=== PATIENT | male | born 1995 | race Caucasian/White ===

== ENCOUNTER 2017-01-22 16:26 | Observation (INO) | payer BC ==
[~2017-01-22] VITALS: Ht 180.3 cm; Wt 90.7 kg
[2017-01-22 17:23] LABS: BASOPHILS % (AUTO) 0 % (0-10); EOSINOPHILS # (AUTO) 0.5 10^3/uL (0.0-0.3); EOSINOPHILS % (AUTO) 6 % (0-10); LYMPHOCYTES # (AUTO) 2.6 X 10^3 (1.0-4.0); LYMPHOCYTES % (AUTO) 34 % (12-44); MEAN CORPUSCULAR HEMOGLOBIN 31 PG (25-34); MEAN CORPUSCULAR HGB CONC 36 G/DL (32-36); MEAN CORPUSCULAR VOLUME 87 FL (80-99); MEAN PLATELET VOLUME 10.8 FL (7.4-10.4); MONOCYTES # (AUTO) 0.7 X 10^3 (0.0-1.0); MONOCYTES % (AUTO) 9 % (0-12); NEUTROPHILS % (AUTO) 51 % (42-75); PLATELET COUNT 199 10^3/uL (130-400); RED BLOOD COUNT 4.95 10^6/uL (4.35-5.85); RED CELL DISTRIBUTION WIDTH 12.2 % (10.0-14.5); WHITE BLOOD COUNT 7.8 10^3/uL (4.3-11.0)
[2017-01-22 17:34] LABS: ALANINE AMINOTRANSFERASE 15 U/L (0-55); ALBUMIN 4.5 G/DL (3.2-4.5); ANION GAP 12 MMOL/L (5-14); ASPARTATE AMINO TRANSFERASE 16 U/L (5-34); BILIRUBIN,TOTAL 0.7 MG/DL (0.1-1.0); BLOOD UREA NITROGEN 13 MG/DL (7-18); BUN/CREATININE RATIO 14; CARBON DIOXIDE 22 MMOL/L (21-32); CHLORIDE 107 MMOL/L (98-107); CREATINE KINASE 117 U/L (30-200); CREATININE SERUM 0.93 MG/DL (0.60-1.30); GFR ESTIMATED > 60; GLUCOSE 109 MG/DL (70-105); POTASSIUM 3.7 MMOL/L (3.6-5.0); SODIUM 141 MMOL/L (135-145); TOTAL PROTEIN 7.1 G/DL (6.4-8.2)
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
[2017-01-22 17:45] LABS: TROPONIN I < 0.30 NG/ML (<0.30)
[2017-01-22] MEDS ORDERED: NS IV 1000 ML 1,000 ML IV ONE (17:45)
[2017-01-22 18:49] LABS: BILIRUBIN,URINE NEGATIVE (NEGATIVE); KETONES,URINE NEGATIVE (NEGATIVE); LEUKOCYTE ESTERASE ,URINE NEGATIVE (NEGATIVE); NITRITE,URINE NEGATIVE (NEGATIVE); PH,URINE 6 (5-9); PROTEIN,URINE NEGATIVE (NEGATIVE); UROBILINOGEN,URINE NORMAL (NORMAL)
[2017-01-22 18:59] LABS: SQUAMOUS EPITHELIAL CELL,UR RARE /HPF
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
[2017-01-22 20:01] VITALS: BP 131/72
[2017-01-22] MEDS ORDERED: HYDROcodone/APAP 5 MG/325 MG (LORTAB) TAB PO PRN (20:30)
[2017-01-22] MEDS ORDERED: ACETAMINOPHEN 325 MG TABLET/CAPLET (TYLENOL) PO PRN (20:30)
[2017-01-22] MEDS ORDERED: KETOROLAC 30 MG/ML VIAL IV PRN (20:30)
[2017-01-22] MEDS ORDERED: ONDANSETRON 4 MG/2 ML (SDV) Z0FRAN IV PRN (20:30)
[2017-01-22] MEDS ORDERED: NS IV 1000 ML 1,000 ML IV SCH (20:30)
[2017-01-22] MEDS ORDERED: CATHETER FLUSH 10 ML SYR IV PRN (20:30)
[2017-01-22] MEDS: CATHETER FLUSH 10 ML SYR IV SCH (22:21)
[2017-01-23] VITALS: BP 133/60
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
[2017-01-23 04:00] VITALS: BP 112/67
[2017-01-23 05:14] LABS: BASOPHILS % (AUTO) 0 % (0-10); EOSINOPHILS # (AUTO) 0.4 10^3/uL (0.0-0.3); EOSINOPHILS % (AUTO) 6 % (0-10); LYMPHOCYTES # (AUTO) 2.9 X 10^3 (1.0-4.0); LYMPHOCYTES % (AUTO) 43 % (12-44); MEAN CORPUSCULAR HEMOGLOBIN 31 PG (25-34); MEAN CORPUSCULAR HGB CONC 35 G/DL (32-36); MEAN CORPUSCULAR VOLUME 88 FL (80-99); MEAN PLATELET VOLUME 10.3 FL (7.4-10.4); MONOCYTES # (AUTO) 0.5 X 10^3 (0.0-1.0); MONOCYTES % (AUTO) 8 % (0-12); NEUTROPHILS # (AUTO) 2.8 X 10^3 (1.8-7.8); NEUTROPHILS % (AUTO) 43 % (42-75); PLATELET COUNT 163 10^3/uL (130-400); RED CELL DISTRIBUTION WIDTH 12.4 % (10.0-14.5); WHITE BLOOD COUNT 6.7 10^3/uL (4.3-11.0)
[2017-01-23 05:36] LABS: ALANINE AMINOTRANSFERASE 13 U/L (0-55); ANION GAP 9 MMOL/L (5-14); ASPARTATE AMINO TRANSFERASE 14 U/L (5-34); BILIRUBIN,TOTAL 0.7 MG/DL (0.1-1.0); BLOOD UREA NITROGEN 15 MG/DL (7-18); BUN/CREATININE RATIO 17; CALCIUM 8.9 MG/DL (8.5-10.1); CARBON DIOXIDE 23 MMOL/L (21-32); CHLORIDE 109 MMOL/L (98-107); CREATINE KINASE 86 U/L (30-200); CREATININE SERUM 0.86 MG/DL (0.60-1.30); GFR ESTIMATED > 60; GLUCOSE 108 MG/DL (70-105); SODIUM 141 MMOL/L (135-145); TOTAL PROTEIN 6.4 G/DL (6.4-8.2)
[2017-01-23 05:44] LABS: TROPONIN I < 0.30 NG/ML (<0.30)
[2017-01-23] MEDS: CATHETER FLUSH 10 ML SYR IV SCH (06:32)
[2017-01-23 08:00] VITALS: BP 120/58
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
--- NOTE | 2017-01-23 09:07 | Discharge Inst-Simple/Standard ---
Discharge Inst-Standard Discharge Medications New, Converted or Re-Newed RX: Other Patient Instructions/Follow Up Plan of Care/Instructions/FU: no strenuous activities for 48 hours. To call my office with any questions Activity as Tolerated: No Goal: no strenuous activity Discharge Diet: No Restrictions JODY SINGLETON MD January 23, 2017 9:07 am
== END 2017-01-23 09:06 | disposition home or self-care (01) ==
LOC: EDUNIT# 16:26 → ER 16:28 → UNDOADMOB 18:56 → 4TH 18:56 → UNDODISOB 01-23 09:20
PROVIDERS: ADMIT Surgery; ATTEND Surgery
DX: T75.09XA Other effects of lightning, initial encounter (principal); R29.0 Tetany
CPT/HCPCS: 36415; 71010; 80053; 81000; 82550; 84484; 85025; 93005; 93041; 96360; G0378

== ENCOUNTER 2023-01-14 13:51 | Emergency (ER) | payer BC, OTHER ==
[~2023-01-14] VITALS: Ht 180 cm; Wt 97.0 kg
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
[2023-01-14] MEDS ORDERED: TETANUS,DIPTH,PERTUSS P/F (BOOSTRIX) 0.5 ML VIAL IM ONE (14:15)
[2023-01-14 15:13] VITALS: BP 131/84
== END 2023-01-14 15:13 | disposition home or self-care (01) ==
LOC: EDUNIT# 13:51 → ER 13:54
DX: S09.90XA Unspecified injury of head, initial encounter (principal); S01.01XA Laceration without foreign body of scalp, initial encounter; Z23 Encounter for immunization; Y04.8XXA Assault by other bodily force, initial encounter
CPT/HCPCS: 90715; 99284